=== PATIENT | male | born 1960 | race American Indian/Alaskan Native ===

== ENCOUNTER 2016-07-28 13:15 | Emergency (ER) | payer SELFPAY ==
[2016-07-28 14:39] VITALS: BP 125/68
--- NOTE | 2016-07-28 17:11 | XRay Report ---
FINAL REPORT PROCEDURE: XR ANKLE 3 RT TECHNIQUE: RIGHT ankle radiographs, AP, lateral, and oblique views. CPT 58541 HISTORY: Fall. Right ankle injury. COMPARISON: No prior studies are available for comparison. FINDINGS: Fracture (s) and/or Dislocation(s): Linear lucency through the right paramedian talar dome. Alignment: Normal. Joint space(s): Small osteophyte off anterior talus. Os trigonum. Soft tissues: Normal. Bone mineralization: Normal. Foreign bodies: None. Calcaneal spurring: None. IMPRESSION: No radiographic evidence of acute fracture. Linear lucency through the right paramedian talar dome felt to be related to overlying shadows rather than fracture. Consider followup radiographs if there is continued clinical concern.
--- NOTE | 2016-07-28 17:11 | Emergency Department Report ---
HPI - General Chief Complaint: Fall Time Seen by Provider: 07/28/16 16:56 - HPI HPI: Patient is a 56-year-old male who's come presents to the ED complaining all fall 2 days ago. Patient states he was at work when he slipped on something at work and twisted his right ankle and fell on his back. Patient states he has throbbing and swelling of the right ankle ever since the incident happened.Patient states he has intermittently nonradiating, throbbing type pain around his right ankle Patient denies loss of consciousness. Or fall or injury to the head. Patient denies any back pain. States soaked in hydrogen is his right ankle. Patient states today the pain got worse and he was able to get his cane and walk with it to release the pressure off of his right leg.. Patient denies fevers/chills/chest pain/shortness of breath/dizziness/abrasions or cuts or any other problems. ED Past Medical Hx - Past Medical History Previous Medical History?: No - Surgical History Past Surgical History?: Yes Hx Appendectomy: Yes Additional Surgical History: Tonsilectomy - Social History Smoking Status: Current Every Day Smoker Substance Use Type: Prescribed - Medications Home Medications: Home Medications Medication Instructions Recorded Confirmed Last Taken Type Cyclobenzaprine [Flexeril] 10 mg PO QHS PRN #20 tablet 07/28/16 Unknown Rx Ibuprofen [Motrin] 800 mg PO Q8HR PRN #30 tablet 07/28/16 Unknown Rx ED Review of Systems ROS: Stated complaint: ANKLE PAIN Other details as noted in HPI Constitutional: denies: chills, fever Eyes: denies: eye pain, eye discharge, vision change ENT: denies: ear pain, throat pain, dental pain, hearing loss, congestion Respiratory: denies: cough, shortness of breath, SOB with exertion, SOB at rest , wheezing Cardiovascular: denies: chest pain, palpitations, edema, syncope Endocrine: no symptoms reported Gastrointestinal: denies: abdominal pain, nausea, vomiting, diarrhea, constipation, hematemesis, melena, hematochezia Genitourinary: denies: urgency, dysuria, frequency, hematuria, discharge, testicular pain, testicular mass Musculoskeletal: denies: back pain, joint swelling, arthralgia Skin: denies: rash, lesions, change in color, change in hair/nails, pruritus Neurological: denies: headache, weakness, numbness, paresthesias, confusion, abnormal gait, vertigo Psychiatric: denies: anxiety, depression, auditory hallucinations, homicidal thoughts, suicidal thoughts Hematological/Lymphatic: denies: easy bleeding, easy bruising, swollen glands Physical Exam - Physical Exam Vital Signs: Vital Signs 07/28/16 14:36 Temperature 97.6 F Pulse Rate 53 L Respiratory 18 Rate Blood Pressure 125/68 O2 Sat by Pulse 98 Oximetry Physical Exam: GENERAL: Alert and oriented x3, no apparent distress, Normal Gait, atraumatic. HEAD: Head is normocephalic and a-traumatic. EYES: Extra ocular muscles are intact. Pupils are equal, round, and reactive to light and accommodation. EARS: symetrical, atraumatic, non tender, gross auditory nml bilaterally. NOSE: Nose symetrical, Nontender,Nares appeared normal. MOUTH:Mouth is well hydrated and without lesions. . Patent airways. NECK: Supple. Non edematous, No carotid bruits. No lymphadenopathy or thyromegaly. LUNGS: Symetrical with respiration, No wheezing, no rales or crackles, CTAB. HEART: S1, S2 present, regular rate and rhythm without murmur, no rubs, no gallops. ABDOMEN: No organomegaly was noted,Positive bowel sounds, soft, and non- distended. Nontender to palpation on all Quadrants, NO CVA tenderness. EXTREMITIES/MUSCULOSKELETAL: No cyanosis, clubbing, rash, lesions or edema. Full ROM bilaterally. UE/LE Pulses 2+ bilaterally. Full range of motion of right foot and ankle. Moderate tenderness to palpation anterior to lateral aspect of the right ankle. Mild edema. No loss of sensation. NEUROLOGIC: No focal Deficit, Cranial nerves II through XII are grossly intact. No loss of sensation, PSYCHIATRIC: Mood is congruent with affect, denies suicidal or homicidal ideations. SKIN: Warm and dry, No lesions, No ulceration or induration present. ED Course Vital Signs 07/28/16 14:36 Temperature 97.6 F Pulse Rate 53 L Respiratory 18 Rate Blood Pressure 125/68 O2 Sat by Pulse 98 Oximetry ED Medical Decision Making - Medical Decision Making 56-year-old male presents with right ankle pain and injury to fall. ED course: Ankle and leg x-rays ordered. Ankle x-ray shows no acute injury or fracture or dislocation. Sign patient received 2 tablets of Tylenol 3. Discussed findings with patient. Discussed the patient will follow up with primary care physician. Discuss home medications of Motrin and Flexeril. Discussed the patient not to take medication while driving or operating machinery. Right ankle Nathan wrap and patient able to walk with the walker. Vital signs are stable. Patient is in no acute procedure distress. Critical care attestation.: If time is entered above; I have spent that time in minutes in the direct care of this critically ill patient, excluding procedure time. ED Disposition Clinical Impression: Strain of right ankle Qualifiers: Encounter type: initial encounter Qualified Code(s): S96.911A - Strain of unspecified muscle and tendon at ankle and foot level, right foot, initial encounter Disposition: DISCHARGED TO HOME OR SELFCARE Is pt being admited?: No Does the pt Need Aspirin: No Condition: Stable Instructions: Ankle Exercises (GEN), Arthralgia (ED), Heat Pack Application (ED ) Prescriptions: Cyclobenzaprine [Flexeril] 10 mg PO QHS PRN #20 tablet PRN Reason: Muscle Spasm Ibuprofen [Motrin] 800 mg PO Q8HR PRN #30 tablet PRN Reason: Pain Referrals: PRIMARY CARE, [Primary Care Provider] - 3-5 Days [facility] [Outside] - 3-5 Days [facility] [place] [Outside] - 3-5 Days [facility] [Outside] - 3-5 Days Forms: Work/School Release Form(ED) Time of Disposition: 17:55
[2016-07-28] MEDS ORDERED: TYLENOL #3 PO ONE (17:20)
== END 2016-07-28 18:58 | disposition home or self-care (01) ==
LOC: EDBD → ED 13:15
DX: S96.911A Strain of unspecified muscle and tendon at ankle and foot level, right foot, initial encounter (principal); F17.200 Nicotine dependence, unspecified, uncomplicated; W18.30XA Fall on same level, unspecified, initial encounter; Y93.9 Activity, unspecified; Y92.9 Unspecified place or not applicable; Y99.9 Unspecified external cause status
CPT/HCPCS: 99284